=== PATIENT | male | born 1955 | race Caucasian/White ===

== ENCOUNTER → 2017-10-29 07:10 | Outpatient (CLI) | payer MEDICARE, SELFPAY ==
[2017-10-29 07:53] LABS: Basophils # 0.1 K/mm3 (0-0.2); Basophils % 0.9 % (0.1-2.0); Eosinophils # 0.2 K/mm3 (0.0-0.4); Eosinophils % 2.9 % (0.1-12.0); Hematocrit 44.1 % (42.0-52.0); Hemoglobin 14.9 g/dL (14.1-18.0); Lymphocytes # 2.2 K/mm3 (0.7-4.5); Lymphocytes % 29.9 K/mm3 (10-50); Mean Corpuscular HGB Conc 33.8 g/dL (31.8-35.4); Mean Corpuscular Hemoglobin 31.2 pg (27.0-31.2); Mean Corpuscular Volume 92.1 fl (80-94); Mean Platelet Volume 9.7 fl (7.4-10.4); Monocytes # 0.4 K/mm3 (0.1-1.0); Monocytes % 4.8 % (1.7-9.3); Neutrophils # 4.5 K/mm3 (1.8-7.8); Neutrophils % 61.6 % (37.0-80.0); Platelet Count 189 K/mm3 (142-424); Red Blood Count 4.79 M/mm3 (4.60-6.20); Red Cell Distribution Width 12.9 % (11.5-17.5); White Blood Count 7.3 K/mm3 (4.8-10.8)
[2017-10-29 08:52] LABS: Hemoglobin A1C 9.4 % (0.0-7.0)
[2017-10-29 09:58] LABS: Alanine Aminotransferase 62 U/L (12-78); Albumin Level 3.7 gm/dL (3.4-5.0); Albumin/Globulin Ratio 1.2 (1.1-1.8); Alkaline Phosphatase 61 U/L (46-116); Anion Gap 15.4 mEq/L (5-15); Aspartate Amino Transferase 39 U/L (15-37); Bilirubin,Total 0.5 mg/dL (0.2-1.0); Blood Urea Nitrogen 19 mg/dL (7-18); Calcium 9.1 mg/dL (8.5-10.1); Carbon Dioxide 25 mmol/L (21.0-32.0); Chloride 102 mmol/L (98-107); Chol/HDL Ratio 4.6 (1-3.5); Cholesterol 139 mg/dL (140-200); Creatinine,Serum 1.11 mg/dL (0.70-1.30); Estimated Glomerular Filt Rate 67 ml/min (>60); Ferritin 224 ng/mL (8-388); GFR (African American) 81 ML/MIN (>60); Globulin 3.2 gm/dl (1.3-3.2); Glucose 219 mg/dL (74-106); HDL Cholesterol 30 mg/dL (27-67); Iron 94 ug/dl (28-170); LDL Cholesterol 73 mg/dL (0-130); Magnesium 1.5 mg/dL (1.4-2.2); Phosphorous 4.2 mg/dL (2.4-4.9); Potassium 4.4 mmoL/L (3.5-5.1); Sodium 138 mmol/L (136-145); Thyroid Stimulating Hormone 2.19 uIU/ml (0.358-3.740); Total Protein,Serum 6.9 gm/dL (6.4-8.2); Triglycerides 182 mg/dL (30-200); VLDL Cholesterol 36 mg/dL (0-40)
[2017-10-30 21:16] LABS: Folate >20.0 ng/mL (>3.0); Parathyroid Hormone Intact 31 pg/mL (15-65); Prealbumin 30 mg/dL (10-36); Vitamin D 25 Hydroxy 21.9 ng/mL (30.0-100.0)
[2017-11-01 19:33] LABS: Methylmalonic Acid 149 nmol/L (0-378)
[2017-11-01 19:34] LABS: Vitamin B1 177.2 nmol/L (66.5-200.0)
[2017-11-02 16:08] LABS: Vitamin E Alpha Tocopherol 10.6 mg/L (9.0-29.0)
[2017-11-02 20:18] LABS: Vitamin E Gamma Tocopherol 1.9 mg/L (0.5-4.9)
== END ==
PROVIDERS: Visit Provider Physician Assistant
DX: K21.9 Gastro-esophageal reflux disease without esophagitis (principal); E11.9 Type 2 diabetes mellitus without complications; I25.10 Atherosclerotic heart disease of native coronary artery without angina pectoris; E66.9 Obesity, unspecified; I10 Essential (primary) hypertension
CPT/HCPCS: 36415; 80053; 80061; 82131; 82330; 82652; 82728; 82746; 83036; 83540; 83735; 83970; 84100; 84134; 84425; 84443; 84446; 84590; 85025; 86677

== ENCOUNTER → 2017-11-11 06:49 | Outpatient (CLI) | payer MEDICARE, SELFPAY ==
--- NOTE | 2017-11-11 06:56 | NM_ITS ---
History and Indications: Coronary artery disease, previous bypass surgery, hypertension, diabetes, hyperlipidemia, family history. Procedure: Patient received a 0.4 mg of Lexiscan, resting heart rate was 59 bpm resting blood pressure 150/95, with Lexiscan maximum heart rate achieved was 97 bpm which is less than 85% of the maximum predicted heart rate and a blood pressure was 161/87, with Lexiscan patient complained of nausea and dizziness Electrocardiogram: Resting electrocardiogram showed sinus bradycardia nonspecific ST-T changes, with Lexiscan less than 1.[address] segment depression noted from the baseline EKG. The EKG portion of the Lexiscan Myoview is nondiagnostic. Cardiac stress and resting SPECT images: Cardiac stress and rest SPECT images were obtained using technetium 99 Myoview 29.4 mCi at stress and 10.7 mCi at rest. Gated SPECT further analysis of segmental wall motion and calculation of the ejection fraction also done. Cardiac stress and rest images show a partial reversible defect involving the inferior and posterobasal wall suggestive of mixed ischemia and scar, computer derived ejection fraction is 43% with moderate inferior wall hypokinesis. Right ventricle is normal size and contractility. Conclusion: 1. The EKG portion of the Lexiscan Myoview is nondiagnostic. 2. Scintigraphic evidence of Lexiscan scar involving the inferior and posterobasal wall, computer derived ejection fraction is 43% with segmental wall motion abnormality described above, right ventricle is normal size and contractility. 3. Abnormal Lexiscan Myoview study
--- NOTE | 2017-11-11 07:53 | HMH.ITSHM ---
METFORMIN GLIPIZIDE RADITIDINE SIMVASTATIN TAMSULOSIN CLOPIDOGREL ALLOPURINOL LOSARTAN PANTOPRAZOLE BISOPROLOL MULTIVITAMIN ASA
== END ==
PROVIDERS: Family Provider Family Medicine; PCP Pediatrics; Visit Provider Physician Assistant
DX: I25.10 Atherosclerotic heart disease of native coronary artery without angina pectoris (principal); Z01.810 Encounter for preprocedural cardiovascular examination; R06.00 Dyspnea, unspecified; I10 Essential (primary) hypertension
CPT/HCPCS: 78452; 93017; A9502; J2785

== ENCOUNTER → 2018-02-18 10:19 | Outpatient (CLI) | payer MEDICARE, SELFPAY ==
--- NOTE | 2018-02-18 10:38 | XR_ITS ---
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 There is mild cardiomegaly without failure. There are increased markings in the right lower lung zone medially suspicious for an area of infiltrate. The remaining lungs are clear. IMPRESSION: Prior median sternotomy with cardiomegaly and possible pneumonia in the right lower lobe. Recommend follow until clear
== END ==
PROVIDERS: PCP Pediatrics; Visit Provider Physician Assistant
DX: Z01.810 Encounter for preprocedural cardiovascular examination (principal)
CPT/HCPCS: 71046; 93005

== ENCOUNTER → 2018-05-22 08:50 | Outpatient (CLI) | payer MEDICARE, SELFPAY ==
[2018-05-22 10:06] LABS: Basophils # 0.1 K/mm3 (0-0.2); Basophils % 1.2 % (0.1-2.0); Eosinophils # 0.3 K/mm3 (0.0-0.4); Eosinophils % 4.3 % (0.1-12.0); Hematocrit 48.2 % (42.0-52.0); Hemoglobin 15.7 g/dL (14.1-18.0); Mean Corpuscular HGB Conc 32.6 g/dL (31.8-35.4); Mean Platelet Volume 8.8 fl (7.4-10.4); Monocytes # 0.4 K/mm3 (0.1-1.0); Monocytes % 6.1 % (1.7-9.3); Neutrophils % 58.5 % (37.0-80.0); Platelet Count 209 K/mm3 (142-424); Red Blood Count 5.24 M/mm3 (4.60-6.20); Red Cell Distribution Width 13.5 % (11.5-17.5); White Blood Count 6.8 K/mm3 (4.8-10.8)
[2018-05-22 11:31] LABS: Alanine Aminotransferase 29 U/L (12-78); Albumin Level 3.9 gm/dL (3.4-5.0); Albumin/Globulin Ratio 1.2 (1.1-1.8); Alkaline Phosphatase 52 U/L (46-116); Anion Gap 16.5 mEq/L (5-15); Aspartate Amino Transferase 12 U/L (15-37); Bilirubin,Total 0.6 mg/dL (0.2-1.0); Blood Urea Nitrogen 12 mg/dL (7-18); Calcium 9.3 mg/dL (8.5-10.1); Carbon Dioxide 27 mmol/L (21.0-32.0); Chloride 102 mmol/L (98-107); Chol/HDL Ratio 3.7 (1-3.5); Cholesterol 127 mg/dL (140-200); Creatinine,Serum 1.08 mg/dL (0.70-1.30); Estimated Glomerular Filt Rate 70 ml/min (>60); Ferritin 208 ng/mL (8-388); GFR (African American) 84 ML/MIN (>60); Globulin 3.2 gm/dl (1.3-3.2); Glucose 157 mg/dL (74-106); Glucose,Fasting 157 mg/dL (60-105); HDL Cholesterol 34 mg/dL (27-67); Iron 91 ug/dl (28-170); LDL Cholesterol 64 mg/dL (0-130); Magnesium 1.6 mg/dL (1.4-2.2); Potassium 4.5 mmoL/L (3.5-5.1); Sodium 141 mmol/L (136-145); Total Protein,Serum 7.1 gm/dL (6.4-8.2); Triglycerides 143 mg/dL (30-200); VLDL Cholesterol 29 mg/dL (0-40)
[2018-05-22 15:13] LABS: Hemoglobin A1C 6.2 % (0.0-7.0)
[2018-05-23 18:39] LABS: Folate >20.0 ng/mL (>3.0); Prealbumin 24 mg/dL (10-36); Vitamin D 25 Hydroxy 40.6 ng/mL (30.0-100.0)
[2018-05-28 09:16] LABS: Methylmalonic Acid 129 nmol/L (0-378)
[2018-05-29 16:14] LABS: Vitamin A 57.3 ug/dL (22.0-69.5); Vitamin B1 187.4 nmol/L (66.5-200.0)
== END ==
PROVIDERS: Visit Provider Surgery
DX: Z98.84 Bariatric surgery status (principal); Z79.899 Other long term (current) drug therapy; E66.01 Morbid (severe) obesity due to excess calories; I10 Essential (primary) hypertension; E11.9 Type 2 diabetes mellitus without complications; Z79.84 Long term (current) use of oral hypoglycemic drugs; E78.5 Hyperlipidemia, unspecified
CPT/HCPCS: 36415; 80053; 80061; 82131; 82652; 82728; 82746; 82947; 83036; 83540; 83735; 84100; 84134; 84425; 84443; 84590; 85025

== ENCOUNTER → 2018-06-23 09:29 | Outpatient (POV) | payer MEDICARE, SELFPAY | PROVIDERS: Visit Provider Dermatology | DX: Z00.00 Encounter for general adult medical examination without abnormal findings (principal) ==

== ENCOUNTER → 2018-07-07 08:25 | Outpatient (POV) | payer MEDICARE, SELFPAY | PROVIDERS: Visit Provider Dermatology | DX: Z00.00 Encounter for general adult medical examination without abnormal findings (principal) ==

== ENCOUNTER → 2018-11-10 09:28 | Outpatient (CLI) | payer MEDICARE, SELFPAY ==
[2018-11-10 11:03] LABS: Basophils # 0.1 K/mm3 (0-0.2); Basophils % 0.9 % (0.1-2.0); Eosinophils # 0.3 K/mm3 (0.0-0.4); Eosinophils % 5.4 % (0.1-12.0); Hematocrit 48.1 % (42.0-52.0); Hemoglobin 16.3 g/dL (14.1-18.0); Lymphocytes # 1.8 K/mm3 (0.7-4.5); Lymphocytes % 34.3 % (10-50); Mean Corpuscular HGB Conc 33.8 g/dL (31.8-35.4); Mean Corpuscular Hemoglobin 30.4 pg (27.0-31.2); Mean Corpuscular Volume 89.9 fl (80-94); Mean Platelet Volume 8.8 fl (7.4-10.4); Monocytes # 0.3 K/mm3 (0.1-1.0); Monocytes % 6.2 % (1.7-9.3); Neutrophils # 2.8 K/mm3 (1.8-7.8); Neutrophils % 53.2 % (37.0-80.0); Platelet Count 188 K/mm3 (142-424); Red Blood Count 5.35 M/mm3 (4.60-6.20); White Blood Count 5.3 K/mm3 (4.8-10.8)
[2018-11-10 12:18] LABS: Alanine Aminotransferase 22 U/L (12-78); Albumin Level 3.6 gm/dL (3.4-5.0); Albumin/Globulin Ratio 1.2 (1.1-1.8); Alkaline Phosphatase 54 U/L (46-116); Anion Gap 10.1 mEq/L (5-15); Aspartate Amino Transferase 13 U/L (15-37); Bilirubin,Total 0.6 mg/dL (0.2-1.0); Blood Urea Nitrogen 13 mg/dL (7-18); Carbon Dioxide 32 mmol/L (21.0-32.0); Chloride 105 mmol/L (98-107); Chol/HDL Ratio 4.1 (1-3.5); Cholesterol 139 mg/dL (140-200); Creatinine,Serum 0.92 mg/dL (0.70-1.30); Estimated Glomerular Filt Rate 83 ml/min (>60); Ferritin 105 ng/mL (8-388); GFR (African American) 101 ML/MIN (>60); Globulin 2.9 gm/dl (1.3-3.2); Glucose 109 mg/dL (74-106); HDL Cholesterol 34 mg/dL (27-67); Iron 136 ug/dl (28-170); LDL Cholesterol 83 mg/dL (0-130); Lipase 210 u/L (73-393); Magnesium 1.8 mg/dL (1.4-2.2); Phosphorous 4.3 mg/dL (2.4-4.9); Potassium 5.1 mmoL/L (3.5-5.1); Sodium 142 mmol/L (136-145); Thyroid Stimulating Hormone 1.52 uIU/ml (0.358-3.740); Total Protein,Serum 6.5 gm/dL (6.4-8.2); Triglycerides 109 mg/dL (30-200); VLDL Cholesterol 22 mg/dL (0-40)
[2018-11-10 15:14] LABS: Hemoglobin A1C 5.8 % (0.0-7.0)
[2018-11-13 06:24] LABS: Vitamin D 25 Hydroxy 34.8 ng/mL (30.0-100.0)
[2018-11-13 20:40] LABS: Folate >20.0 ng/mL (>3.0); Parathyroid Hormone Intact 20 pg/mL (15-65); Prealbumin 25 mg/dL (10-36)
[2018-11-13 20:46] LABS: Vitamin A 56.8 ug/dL (22.0-69.5); Vitamin B1 201.2 nmol/L (66.5-200.0)
[2018-11-13 20:47] LABS: Vitamin E Alpha Tocopherol 11.7 mg/L (9.0-29.0)
[2018-11-14 19:12] LABS: Methylmalonic Acid 170 nmol/L (0-378)
== END ==
PROVIDERS: Visit Provider Physician Assistant
DX: E78.5 Hyperlipidemia, unspecified (principal); E11.9 Type 2 diabetes mellitus without complications; Z98.84 Bariatric surgery status
CPT/HCPCS: 36415; 80053; 80061; 82131; 82652; 82728; 82746; 83036; 83540; 83690; 83735; 83970; 84100; 84134; 84425; 84443; 84446; 84590; 85025

== ENCOUNTER → 2019-02-11 08:20 | Outpatient (CLI) | payer MEDICARE, SELFPAY ==
[2019-02-11 09:03] LABS: Basophils # 0.1 K/mm3 (0-0.2); Basophils % 1.1 % (0.1-2.0); Eosinophils # 0.4 K/mm3 (0.0-0.4); Eosinophils % 6.9 % (0.1-12.0); Hematocrit 49.9 % (42.0-52.0); Hemoglobin 16.4 g/dL (14.1-18.0); Lymphocytes # 1.7 K/mm3 (0.7-4.5); Lymphocytes % 30.2 % (10-50); Mean Corpuscular HGB Conc 32.9 g/dL (31.8-35.4); Mean Corpuscular Hemoglobin 30.6 pg (27.0-31.2); Mean Corpuscular Volume 92.9 fl (80-94); Mean Platelet Volume 8.2 fl (7.4-10.4); Monocytes # 0.3 K/mm3 (0.1-1.0); Monocytes % 5.3 % (1.7-9.3); Neutrophils # 3.1 K/mm3 (1.8-7.8); Neutrophils % 56.5 % (37.0-80.0); Platelet Count 207 K/mm3 (142-424); Red Blood Count 5.37 M/mm3 (4.60-6.20); Red Cell Distribution Width 12.9 % (11.5-17.5); White Blood Count 5.5 K/mm3 (4.8-10.8)
[2019-02-11 10:11] LABS: Alanine Aminotransferase 19 U/L (12-78); Albumin/Globulin Ratio 1.3 (1.1-1.8); Alkaline Phosphatase 52 U/L (46-116); Anion Gap 14.8 mEq/L (5-15); Aspartate Amino Transferase 21 U/L (15-37); Bilirubin,Total 0.7 mg/dL (0.2-1.0); Blood Urea Nitrogen 14 mg/dL (7-18); Calcium 9.4 mg/dL (8.5-10.1); Carbon Dioxide 29 mmol/L (21.0-32.0); Chloride 104 mmol/L (98-107); Chol/HDL Ratio 3.5 (1-3.5); Cholesterol 141 mg/dL (140-200); Creatinine,Serum 0.99 mg/dL (0.70-1.30); Estimated Glomerular Filt Rate 77 ml/min (>60); Ferritin 126 ng/mL (8-388); GFR (African American) 93 ML/MIN (>60); Globulin 3.1 gm/dl (1.3-3.2); Glucose 109 mg/dL (74-106); HDL Cholesterol 40 mg/dL (27-67); Iron 149 ug/dl (28-170); LDL Cholesterol 83 mg/dL (0-130); Magnesium 1.7 mg/dL (1.4-2.2); Potassium 4.8 mmoL/L (3.5-5.1); Sodium 143 mmol/L (136-145); Thyroid Stimulating Hormone 2.43 uIU/ml (0.358-3.740); Total Protein,Serum 7.1 gm/dL (6.4-8.2); Triglycerides 91 mg/dL (30-200); VLDL Cholesterol 18 mg/dL (0-40)
[2019-02-11 10:55] LABS: Hemoglobin A1C 5.8 % (0.0-7.0)
[2019-02-12 11:46] LABS: Folate >20.0 ng/mL (>3.0); Vitamin D 25 Hydroxy 36.7 ng/mL (30.0-100.0)
[2019-02-12 13:09] LABS: Parathyroid Hormone Intact 24 pg/mL (15-65)
[2019-02-12 17:33] LABS: Prealbumin 25 mg/dL (10-36)
[2019-02-15 09:54] LABS: Vitamin B1 188.5 nmol/L (66.5-200.0); Vitamin E Alpha Tocopherol 14.1 mg/L (9.0-29.0); Vitamin E Gamma Tocopherol 0.9 mg/L (0.5-4.9)
[2019-02-15 14:15] LABS: Methylmalonic Acid 169 nmol/L (0-378)
[2019-02-18 07:08] LABS: Vitamin A 59.2 ug/dL (22.0-69.5)
== END ==
PROVIDERS: Visit Provider Physician Assistant
DX: E11.9 Type 2 diabetes mellitus without complications (principal); E78.5 Hyperlipidemia, unspecified; R63.4 Abnormal weight loss; Z98.84 Bariatric surgery status
CPT/HCPCS: 36415; 80053; 80061; 82131; 82652; 82728; 82746; 83036; 83540; 83735; 83970; 84100; 84134; 84425; 84443; 84446; 84590; 85025

== ENCOUNTER → 2019-06-22 11:00 | Outpatient (POV) | payer MEDICARE, SELFPAY | PROVIDERS: Visit Provider Dermatology | DX: Z00.00 Encounter for general adult medical examination without abnormal findings (principal) ==

== ENCOUNTER → 2019-07-01 10:38 | Outpatient (CLI) | payer MEDICARE, SELFPAY ==
[2019-07-01 11:47] LABS: Prostate Specific Ag Screen 10.1 ng/mL (0.0-4.0)
== END ==
PROVIDERS: Visit Provider Urology
DX: N52.9 Male erectile dysfunction, unspecified (principal); Z12.5 Encounter for screening for malignant neoplasm of prostate
CPT/HCPCS: 36415; G0103

== ENCOUNTER → 2019-07-06 14:29 | Outpatient (POV) | payer MEDICARE, SELFPAY | PROVIDERS: Visit Provider Dermatology | DX: Z00.00 Encounter for general adult medical examination without abnormal findings (principal) ==

== ENCOUNTER → 2019-09-16 09:32 | Outpatient (CLI) | payer MEDICARE, SELFPAY ==
[2019-09-17 11:57] LABS: PSA, Free 1.47 ng/mL; Prostate Specific Ag 7.5 ng/mL (0.0-4.0)
== END ==
PROVIDERS: Visit Provider Urology
DX: R97.20 Elevated prostate specific antigen [PSA] (principal)
CPT/HCPCS: 36415; 84153; 84154

== ENCOUNTER → 2019-12-04 08:25 | Outpatient (CLI) | payer MEDICARE, SELFPAY ==
[2019-12-04 10:34] LABS: Chloride 106 mmol/L (98-107)
[2019-12-04 10:35] LABS: Sodium 140 mmol/L (136-145)
[2019-12-04 10:37] LABS: Alanine Aminotransferase 11 U/L (12-78); Albumin/Globulin Ratio 1.6 (1.1-1.8); Alkaline Phosphatase 45 U/L (38-126); Aspartate Amino Transferase 19 U/L (17-59); Bilirubin,Total 0.8 mg/dl (0.2-1.3); Blood Urea Nitrogen 17 mg/dl (9-20); Carbon Dioxide 30 mmol/L (22.0-30.0); Estimated Glomerular Filt Rate 68 ml/min (>60); GFR (African American) 82 ML/MIN (>60); Globulin 2.5 g/dL (1.3-3.2); Total Protein,Serum 6.5 g/dl (6.3-8.2)
[2019-12-04 10:38] LABS: Calcium 9.2 mg/dl (8.4-10.2); Chol/HDL Ratio 3.5 (1-3.5); Cholesterol 125 mg/dl (140-200); Glucose 105 mg/dl (74-100); HDL Cholesterol 36 mg/dl (40-60); Triglycerides 102 mg/dl (30-150); VLDL Cholesterol 20 mg/dL (0-40)
[2019-12-04 10:45] LABS: Hemoglobin A1C 6.1 % (4.0-6.0)
[2019-12-04 10:49] LABS: Direct LDL Cholesterol 77.84 mg/dL (100-129)
== END ==
PROVIDERS: Visit Provider Internal Medicine Adolescent Medicine
DX: E11.9 Type 2 diabetes mellitus without complications (principal); E78.01 Familial hypercholesterolemia; I10 Essential (primary) hypertension
CPT/HCPCS: 36415; 80053; 80061; 83036

== ENCOUNTER → 2019-12-22 10:22 | Outpatient (CLI) | payer MEDICARE, SELFPAY ==
[2019-12-23 12:35] LABS: PSA, Free 1.31 ng/mL; Prostate Specific Ag 6.7 ng/mL (0.0-4.0)
== END ==
PROVIDERS: Visit Provider Urology
DX: R97.20 Elevated prostate specific antigen [PSA] (principal)
CPT/HCPCS: 36415; 84153; 84154

== ENCOUNTER → 2020-06-19 11:05 | Outpatient (CLI) | payer MEDICARE, SELFPAY ==
[2020-06-20 10:50] LABS: PSA, Free 1.58 ng/mL; Prostate Specific Ag 6.8 ng/mL (0.0-4.0)
== END ==
PROVIDERS: Visit Provider Urology
DX: N40.0 Benign prostatic hyperplasia without lower urinary tract symptoms (principal)
CPT/HCPCS: 84153; 84154

== ENCOUNTER → 2020-08-11 10:15 | Outpatient (CLI) | payer MEDICARE, SELFPAY ==
--- NOTE | 2020-08-11 10:20 | XR_ITS ---
PROCEDURE: XR SHOULDER LT MIN 2V CLINICAL INDICATION: LT SHOULDER PAIN COMPARISON: No exams were available for comparison FINDINGS: No fracture or dislocation. No lytic or blastic change. There is normal mineralization. Mild osteoarthritic changes of the glenohumeral joint. There is mild subacromial stenosis. Other findings:None. IMPRESSION: Mild degenerative changes Dictated by: Chuy Clark MD 08/11/2020 11:04 Chuy Clark MD in [facility] 08/11/2020 11:04
[2020-08-11 11:57] LABS: Alanine Aminotransferase 12 U/L (12-78); Albumin Level 4.5 g/dl (3.5-5.0); Albumin/Globulin Ratio 1.5 (1.1-1.8); Alkaline Phosphatase 55 U/L (38-126); Anion Gap 13.3 mEq/L (5-15); Aspartate Amino Transferase 23 U/L (17-59); Bilirubin,Total 0.5 mg/dl (0.2-1.3); Blood Urea Nitrogen 16 mg/dl (9-20); Calcium 9.8 mg/dl (8.4-10.2); Carbon Dioxide 29 mmol/L (22.0-30.0); Chloride 104 mmol/L (98-107); Chol/HDL Ratio 3.8 (1-3.5); Cholesterol 136 mg/dl (140-200); Estimated Glomerular Filt Rate 67 ml/min (>60); GFR (African American) 82 ML/MIN (>60); Globulin 3.1 g/dL (1.3-3.2); Glucose 127 mg/dl (74-100); HDL Cholesterol 36 mg/dl (40-60); Potassium 5.3 mmoL/L (3.5-5.1); Sodium 141 mmol/L (136-145); Total Protein,Serum 7.6 g/dl (6.3-8.2); Triglycerides 130 mg/dl (30-150); VLDL Cholesterol 26 mg/dL (0-40)
[2020-08-11 12:08] LABS: Direct LDL Cholesterol 80.08 mg/dL (100-129)
[2020-08-11 12:15] LABS: Hemoglobin A1C 6.6 % (4.0-6.0)
== END ==
PROVIDERS: PCP Internal Medicine Adolescent Medicine; Visit Provider Internal Medicine Adolescent Medicine
DX: M25.512 Pain in left shoulder (principal); E11.9 Type 2 diabetes mellitus without complications; E78.01 Familial hypercholesterolemia
CPT/HCPCS: 36415; 73030; 80053; 80061; 83036

== ENCOUNTER → 2020-08-15 09:09 | Outpatient (POV) | payer MEDICARE, SELFPAY | PROVIDERS: Visit Provider Dermatology | DX: Z00.00 Encounter for general adult medical examination without abnormal findings (principal) ==

== ENCOUNTER → 2020-09-08 12:24 | Outpatient (CLI) | payer MEDICARE, SELFPAY ==
--- NOTE | 2020-09-08 12:33 | XR_ITS ---
PROCEDURE: XR LUMBAR SPINE MIN 4V CLINICAL INDICATION: LOW BACK PAIN,W/LT SIDE SCIATICA COMPARISON: No exams were available for comparison FINDINGS: Multilevel degenerative changes of the lumbar spine with endplate sclerosis, loss of disc height and facet joint arthropathy. No acute fractures or traumatic subluxation. Bone density is normal. Vascular calcification is noted. IMPRESSION: Degenerative changes as described above. No acute fractures or traumatic subluxation. Dictated by: Dionne Maravilla 09/08/2020 15:06 Dionne Maravilla in [facility] 09/08/2020 15:06
== END ==
PROVIDERS: PCP Internal Medicine Adolescent Medicine; Visit Provider Internal Medicine Adolescent Medicine
DX: M54.42 Lumbago with sciatica, left side (principal)
CPT/HCPCS: 72110

== ENCOUNTER → 2020-09-12 09:07 | Outpatient (POV) | payer MEDICARE, SELFPAY | PROVIDERS: Visit Provider Dermatology | DX: Z00.00 Encounter for general adult medical examination without abnormal findings (principal) ==